=== PATIENT | female | born 1960 | race Caucasian/White ===

== ENCOUNTER 2016-12-03 10:03 | Emergency (ER) | payer BC ==
[2016-12-03 10:50] VITALS: BP 108/74
--- NOTE | 2016-12-03 11:04 | UC ---
Throat Pain/Nasal Malik HPI - HPI Summary HPI Summary: SORE THROAT X 20 DAYS , HAS BEEN SEEN 3 X ALREADY , HAS BEEN PLACED ON ABX 2 X NOT ANY BETTER. LOST HER VOICE ABOUT 10 DAYS AGO NO UR SX, NO COUGH , NO FEVER, + CHILLS AND FATIGUE - History of Current Complaint Chief Complaint: UCGeneralIllness Stated Complaint: SORE THROAT Time Seen by Provider: 12/03/16 10:33 Hx Obtained From: Patient Hx Last Menstrual Period: 06/20/2010 Onset/Duration: Gradual Onset, Lasting Days - 20, Still Present Severity: Severe Cough: None Associated Signs & Symptoms: Positive: Hoarseness. Negative: Sinus Discomfort, Nasal Discharge, Fever, Vomiting, Rash - Allergies/Home Medications Allergies/Adverse Reactions: Allergies Allergy/AdvReac Type Severity Reaction Status Date / Time Adhesive Tape Allergy Mild Rash Verified 12/03/16 10:35 Prednisone Allergy Mild increased Verified 12/03/16 10:35 b/p Sulfa Antibiotics Allergy Mild Hives Verified 12/03/16 10:35 Honey Allergy Difficulty Verified 12/03/16 10:35 Breathing Latex Allergy Rash Verified 12/03/16 10:35 bee sting Allergy anaphylaxis Uncoded 12/03/16 10:35 PMH/Surg Hx/FS Hx/Imm Hx Endocrine History Of: Denies: Diabetes Cardiovascular History Of: Denies: Cardiac Disorders, Hypertension Respiratory History Of: Reports: Asthma, Bronchitis - Surgical History Surgical History: Yes Surgery Procedure, Year, and Place: gb 2001 cataract 2012; Left thumb X 2 -last surgery was 01/25/13. RIGHT WRIST - Family History Known Family History: Positive: Cardiac Disease - Social History Alcohol Use: Rare Substance Use Type: None Smoking Status (MU): Never Smoked Tobacco - Immunization History Most Recent Influenza Vaccination: none Review of Systems Constitutional: Negative Skin: Negative Eyes: Negative ENT: Sore Throat Respiratory: Negative Cardiovascular: Negative Gastrointestinal: Negative Genitourinary: Negative All Other Systems Reviewed And Are Negative: Yes Physical Exam Triage Information Reviewed: Yes Appearance: Well-Appearing, No Pain Distress, Well-Nourished Vital Signs: Initial Vital Signs Temp 97.8 F 12/03/16 10:37 Pulse 100 12/03/16 10:37 Resp 20 12/03/16 10:37 BP 108/74 12/03/16 10:37 Pulse Ox 100 12/03/16 10:37 Eye Exam: Normal Eyes: Positive: Conjunctiva Clear ENT: Positive: Normal ENT inspection, Hearing grossly normal, Pharyngeal erythema, TMs normal. Negative: Nasal congestion, Nasal drainage Neck: Positive: Supple, Nontender, No Lymphadenopathy Respiratory: Positive: Chest non-tender, Lungs clear, Normal breath sounds Cardiovascular: Positive: RRR, No Murmur, Pulses Normal Abdominal Exam: Normal Skin Exam: Normal Throat Pain/Nasal Course/Dx - Differential Dx/Diagnosis Provider Diagnoses: PHARYNGITIS. LARYNGITIS Discharge - Discharge Plan Condition: Stable Disposition: HOME Prescriptions: Naproxen [Naproxen 500 MG TABS] 500 mg PO BID #20 tab Patient Education Materials: Pharyngitis (ED), Laryngitis (ED) Referrals: Delio Hill MD [Primary Care Provider] - Shreyas Cid MD [Medical Doctor] - Additional Instructions: WILL CHECK FOR MONO CALL THE OFFICE IN 2 DAYS FOR THE RESULTS REFERRAL TO ENT FOR EVAL AND TX PT. WOULD LIKE TO SEE DR. CID
[2016-12-04 11:59] LABS: EBV Response YES
[2016-12-04 12:42] LABS: Mono Internal Control QC Line Present
[2016-12-06 11:21] LABS: EBV Capsid Ag IgG Ab Positive (Negative); EBV Capsid Ag IgM Ab Negative (Negative)
== END 2016-12-03 11:25 | disposition home or self-care (01) ==
LOC: UCCORT 10:03
DX: J02.9 Acute pharyngitis, unspecified (principal); Z88.2 Allergy status to sulfonamides; Z88.8 Allergy status to other drugs, medicaments and biological substances
CPT/HCPCS: 36415; 86308; 86664; 86665; 99211; G0463